=== PATIENT | female | born 1960 | race Caucasian/White ===

== ENCOUNTER 2017-07-30 18:10 | Emergency (ER) | payer OTHER ==
[~2017-07-30] VITALS: Ht 160 cm; Wt 87.8 kg
[~2017-07-30 18:10] MED LIST: ALBUAER2 PO; ALUMSUS2 PO; ASPI-390 PO; B-COCAP2 PO; BLAC1TAB PO; CHOL2000 PO; COEN1CAP46 PO; CRAN1CAP15 PO; CYCL10TA6 PO; FLUT1INH INH; IBUP-1427 PO; LSN25 PO; OMEG10007 PO; TUMERIC PO; [UNRECOGNIZED DRUG - OTHER] PO
[2017-07-30 18:12] VITALS: TEMP 37.1; Ht 160 cm; Wt 87.8 kg
[2017-07-30] MEDS ORDERED: PROCHLORPERAZINE 5 MG/ML 2 ML VIAL IV STA (18:23)
[2017-07-30] MEDS ORDERED: MAGNESIUM SULFATE 1GM / D5W 1 GM BAG IV STA (18:23)
[2017-07-30] MEDS ORDERED: ALBUT/IPRATROP 3MG/0.5MG NEB 3 ML VIAL INH STA (18:23)
[2017-07-30] MEDS ORDERED: DiphenhydrAMINE HCL 50 MG/ML VIAL IV STA (18:23)
[2017-07-30] MEDS ORDERED: KETOROLAC TROMETHAMINE 30 MG/ML VIAL IV STA (18:23)
[2017-07-30] MEDS ORDERED: OPTIRAY 320 IV PRN (18:30)
[2017-07-30] MEDS ORDERED: WLLSR150 PO (18:42)
[2017-07-30] MEDS ORDERED: MAGN400T7 PO (18:42)
[2017-07-30] MEDS ORDERED: VNTHFA/IN INH (18:42)
[2017-07-30] MEDS ORDERED: PANT20TA2 PO (18:42)
[2017-07-30] MEDS ORDERED: HYDR500C3 PO (18:42)
[2017-07-30 18:55] LABS: BASO % 0.4 %; BASO ABS # 0.03 K/uL (0-0.2); EOS % 0.8 %; HEMATOCRIT 43.6 % (37-47); IG% 0.1 %; LYMPH % 32.2 %; LYMPH ABS # 2.73 K/uL (1.2-3.4); MEAN CELL VOLUME 112.7 fL (80-100); MEAN CORPUSCULAR HEMOGLOBIN 39.3 pg (25-34); MEAN CORPUSCULAR HGB CONC 34.9 g/dl (32-36); MEAN PLATELET VOLUME 9.2 fL (7.4-10.4); MONO % 7.2 %; NEUT % 59.3 %; PLATELET COUNT 305 K/uL (130-400); RED BLOOD COUNT 3.87 M/uL (4.2-5.4); WHITE BLOOD COUNT 8.47 K/uL (4.8-10.8)
--- NOTE | 2017-07-30 19:01 | EMERGENCY ROOM VISIT NOTE ---
History Report prepared by Ron: Celia Edge Under the Supervision of: Dr. Marciano Lynn M.D. First contact with patient: 18:17 Chief Complaint: HEADACHE Stated Complaint: HEADACHE History of Present Illness The patient is a 57 year old female who presents to the Emergency Room with complaints of worsening headache starting 2 weeks ago. The patient was standing at work when she felt a pop like she got hit in the back of her head. She then became really dizzy. The dizziness resolved and then she felt foggy for 30 minutes. The fogginess resolved, but she has had a constant headache since. The pain is behind her eyes radiating into the back of her head. The pain is somewhat relieved after ibuprofen, but never completely resolved. She has had migraines in the past, but feels that this is not a migraine because she does not have any nausea or other symptoms usually associated with her migraines. The headache started worsening last night. She went to urgent care today and was sent to the ED for a CT scan. She has had a productive cough. She denies any rhinorrhea. She does smoke. She has a history of asthma and polycythemia vera. Source of History: patient Onset: 2 weeks ago Position: head Quality: ache Timing: worsening Modifying Factors (Relieving): ibuprofen Associated Symptoms: + cough, No nausea Note: Pt denies rhinorrhea. Review of Systems See HPI for pertinent positives & negatives. A total of 10 systems reviewed and were otherwise negative. Past Medical & Surgical Medical Problems: (1) Afib (2) Asthma (3) Depression (4) Diaphragmatic hernia (5) Emphysema/COPD (6) Migraine (7) Polycythemia vera (8) Precordial chest pain (9) Tension headache (10) Tobacco use disorder Surgical Problems: (1) H/O bilateral breast reduction surgery (2) History of partial hysterectomy (3) History of tonsillectomy and adenoidectomy Family History Negative family history for blood clots Negative family history for heart disease FHx: hypercholesterolemia Social History Smoking Status: Current Every Day Smoker Drug Use: none Marital Status: single Housing Status: lives alone Occupation Status: employed Current/Historical Medications Scheduled Black Cohosh (Cimicifuga Racem (Black Cohosh), 1 CAP PO DAILY Bupropion HCl (Bupropion HCl Sr), 150 MG PO DAILY Cholecalciferol (Vitamin D3), 1 CAP PO DAILY Coenzyme Q10 (Ubidecarenone) (Co Q10), 200 MG PO DAILY Cranberry (Vaccinium Macrocarp (Cranberry), 1 TAB PO DAILY Cyclobenzaprine Hcl (Flexeril), 1 TAB PO HS Fish Oil ([place]-3), 1,600 MG PO DAILY Fluticasone Furoate-Vilanterol (Breo Ellipta), 1 PUFF INH DAILY Hydroxyurea (Hydrea Cap), 1,000 MG PO DAILY Ibuprofen (Advil), 800 MG PO PRN Magnesium Oxide (Mg Supplement (Magnesium Oxide), 1 TAB PO DAILY Pantoprazole Sodium (Protonix), 20 MG PO DAILY Turmeric (Curcuma Longa) (Turmeric), 500 MG PO DAILY Vitamin B Cmplx/Vitc/Folic Ac (Nephrocaps), 1 CAP PO DAILY Scheduled PRN Albuterol Hfa (Ventolin Hfa), 2 PUFFS INH Q4 PRN for Wheezing Myrahal-Ydtpmafskpqlf-Rukxruct (Excedrin Migraine), 2 TAB PO Q6H PRN for Migraine Allergies Coded Allergies: Tramadol (Verified Allergy, Severe, HEADACHE, 07/30/17) Diclofenac (Unverified Allergy, Mild, NAUSEA, 12/03/15) Venlafaxine (Unverified Allergy, Mild, ELEVATES BP, 12/03/15) Fentanyl (Verified Allergy, Unknown, CAN USE TOPPICAL DURAGESIC, CAN NOT USE IV !, 12/03/15) Macrolides and Ketolides (Verified Allergy, Unknown, UNKNOWN, 12/03/15) Propoxyphene (Verified Allergy, Unknown, CAN TAKE PINK, WHITE MAKES HER SICK, 12/03/15) Sulfa Antibiotics (Verified Allergy, Unknown, UNKNOWN, 12/03/15) Erythromycin (Unverified Adverse Reaction, Intermediate, SEVERE ABDOMINAL PAIN/BLOODY MUCOUS, 12/03/15) Physical Exam Vital Signs Date Time Temp Pulse Resp B/P (MAP) Pulse Ox O2 Delivery O2 Flow Rate FiO2 07/30/17 20:42 72 20 128/83 95 07/30/17 19:57 86 20 123/73 93 Room Air 07/30/17 19:14 102 07/30/17 18:12 37.1 100 16 171/103 93 Room Air Physical Exam GENERAL: Patient is a healthy-appearing well-nourished female HEAD: Normocephalic atraumatic EYES: Ocular movements intact pupils equal and react to light OROPHARYNX mucous membranes are moist no exudates present no erythema or edema present NECK: Supple no nuchal rigidity. No evidence of meningitis or encephalitis. CHEST: Good equal expansion LUNGS: Clear and equal to auscultation CARDIAC: Normal S1 and S2 ABDOMEN: Soft nontender no guarding BACK: No CVA tenderness EXTREMITIES: No pain upon palpation normal muscle strength in all groups no clubbing cyanosis or edema NEURO: Patient is following commands and answering questions appropriately. Alert and oriented x3 Cranial Nerves 2-12 grossly intact Medical Decision & Procedures ER Provider Diagnostic Interpretation: Radiology results as stated below per my review and radiologist interpretation: ANGIOGRAPHY HEAD COMBO CLINICAL HISTORY: 57 years-old Female presenting with headache. TECHNIQUE: Multidetector CT angiography of the head was performed before and after the administration of intravenous contrast. 3-D volumetric and/or maximum intensity projection (MIP) images were subsequently reconstructed for review. IV contrast: 93 mL of Optiray 320. A dose lowering technique was used consistent with the principles of ALARA (as low as reasonably achievable). COMPARISON: Noncontrast head CT from 2015. CT DOSE (mGy.cm): The estimated cumulative dose is 729.87 mGy.cm. FINDINGS: Parts Room Associate topogram: Calcified granuloma may be present at the right apex. NONCONTRAST CT HEAD: Ventricles and sulci normal in size. Brain parenchyma normal in appearance with preserved phillips-white differentiation. No mass effect or midline shift. No hemorrhage or acute territorial infarct. No extra-axial fluid collection. Paranasal sinuses and mastoid air cells clear. Calvarium intact. CTA HEAD: Anterior circulation including the intracranial portions of the internal carotid arteries, anterior middle cerebral arteries, and anterior communicating artery patent. Posterior circulation demonstrates codominant vertebral arteries. Patent posterior inferior cerebellar, superior cerebellar, and posterior cerebral arteries. The anterior inferior cerebellar arteries are poorly visualized. Hypoplastic or aplastic right posterior communicating artery. Patent left posterior to indicating artery. No evidence of aneurysm, focal vessel occlusion, or significant stenosis. Dural venous sinuses are patent. IMPRESSION: 1. No acute intracranial pathology. 2. No evidence of aneurysm, focal vessel occlusion, or significant stenosis of the intracranial arteries. Electronically signed by: Atif Samuel M.D. 07/30/2017 7:49 PM Dictated Date/Time: 07/30/2017 7:42 PM Laboratory Results 07/30/17 18:37 Red Blood Count 3.87, Mean Corpuscular Volume 112.7, Mean Corpuscular Hemoglobin 39.3, Mean Corpuscular Hemoglobin Concent 34.9, Mean Platelet Volume 9.2, Neutrophils (%) (Auto) 59.3, Lymphocytes (%) (Auto) 32.2, Monocytes (%) ( Auto) 7.2, Eosinophils (%) (Auto) 0.8, Basophils (%) (Auto) 0.4, Neutrophils # ( Auto) 5.02, Lymphocytes # (Auto) 2.73, Monocytes # (Auto) 0.61, Eosinophils # ( Auto) 0.07, Basophils # (Auto) 0.03 07/30/17 18:37 Test 07/30/17 18:37 07/30/17 19:30 White Blood Count 8.47 K/uL (4.8-10.8) Red Blood Count 3.87 M/uL (4.2-5.4) Hemoglobin 15.2 g/dL (12.0-16.0) Hematocrit 43.6 % (37-47) Mean Corpuscular Volume 112.7 fL (80-100) Mean Corpuscular Hemoglobin 39.3 pg (25-34) Mean Corpuscular Hemoglobin Concent 34.9 g/dl (32-36) Platelet Count 305 K/uL (130-400) Mean Platelet Volume 9.2 fL (7.4-10.4) Neutrophils (%) (Auto) 59.3 % Lymphocytes (%) (Auto) 32.2 % Monocytes (%) (Auto) 7.2 % Eosinophils (%) (Auto) 0.8 % Basophils (%) (Auto) 0.4 % Neutrophils # (Auto) 5.02 K/uL (1.4-6.5) Lymphocytes # (Auto) 2.73 K/uL (1.2-3.4) Monocytes # (Auto) 0.61 K/uL (0.11-0.59) Eosinophils # (Auto) 0.07 K/uL (0-0.5) Basophils # (Auto) 0.03 K/uL (0-0.2) RDW Standard Deviation 51.4 fL (36.4-46.3) RDW Coefficient of Variation 12.6 % (11.5-14.5) Immature Granulocyte % (Auto) 0.1 % Immature Granulocyte # (Auto) 0.01 K/uL (0.00-0.02) Macrocytosis PRESENT Anion Gap 6.0 mmol/L (3-11) Est Creatinine Clear Calc Drug Dose 91.5 ml/min Estimated GFR () 107.5 Estimated GFR (Non- 92.7 BUN/Creatinine Ratio 16.3 (10-20) Calcium Level 9.0 mg/dl (8.5-10.1) Total Bilirubin 0.3 mg/dl (0.2-1) Direct Bilirubin < 0.1 mg/dl (0-0.2) Aspartate Amino Transf (AST/SGOT) 16 U/L (15-37) Alanine Aminotransferase (ALT/SGPT) 26 U/L (12-78) Alkaline Phosphatase 77 U/L (45-117) Total Protein 7.7 gm/dl (6.4-8.2) Albumin 4.1 gm/dl (3.4-5.0) Lipase 90 U/L (73-393) Urine Color YELLOW Urine Appearance CLEAR (CLEAR) Urine pH 6.0 (4.5-7.5) Urine Specific Nursery 1.010 (1.000-1.030) Urine Protein NEG (NEG) Urine Glucose (UA) NEG (NEG) Urine Ketones NEG (NEG) Urine Occult Blood NEG (NEG) Urine Nitrite NEG (NEG) Urine Bilirubin NEG (NEG) Urine Urobilinogen NEG (NEG) Urine Leukocyte Esterase NEG (NEG) Labs reviewed by ED physician. Medications Administered Medications (Trade) Dose Ordered Sig/Oj Route Start Time Stop Time Status Last Admin Dose Admin Albuterol/ Ipratropium (Duoneb) 3 ml NOW STAT INH 07/30/17 18:23 07/30/17 18:26 DC 07/30/17 19:03 3 ML Ketorolac Tromethamine (Toradol Inj) 30 mg NOW STAT IV 07/30/17 18:23 07/30/17 18:26 DC 07/30/17 19:02 30 MG Prochlorperazine Edisylate (Compazine Inj) 10 mg NOW STAT IV 07/30/17 18:23 07/30/17 18:26 DC 07/30/17 19:02 10 MG Diphenhydramine HCl (Benadryl Inj) 50 mg NOW STAT IV 07/30/17 18:23 07/30/17 18:26 DC 07/30/17 19:03 50 MG Magnesium Sulfate (Magnesium Sulfate) 1 gm NOW STAT IV 07/30/17 18:23 07/30/17 18:26 DC 07/30/17 19:57 1 GM Dexamethasone Sodium Phosphate 10 mg/Syringe 2.5 ml @ 1 mls/min NOW STAT IV 07/30/17 20:08 07/30/17 20:10 DC 07/30/17 20:27 1 MLS/MIN ED Course 1818: Past medical records reviewed. The patient was evaluated in room B12B. A complete history and physical examination was performed. 182: Magnesium Sulfate 1 gm IV, Benadryl Inj 50 mg IV, Compazine Inj 10 mg IV, Toradol Inj 30 mg IV, Duoneb 3 ml INH. 2005: Upon reexamination the patient is resting comfortably. I discussed results and treatment plan with the patient. She verbalizes agreement and understanding. The patient is ready for discharge. 2008: Dexamethasone Sodium Phosphate 10 mg/Syringe 2.5 ml @ 1 mls/min IV. Medical Decision Differential diagnosis: Etiologies such as migraine headache, meningitis, sinusitis, CO exposure, ICH, SAH, infection, tumor, headache, sinus thrombosis, arterial dissection, as well as others were entertained. This is a 57-year-old female who presents emergency department complaining of headache. I will note that the patient has no evidence of meningitis encephalitis on examination. In addition she is also afebrile and does not have an elevation in her white blood count cell count. Due to the nature the patient's complaint she was sent for a CTA of the head. This did not show any evidence of a ruptured aneurysm. The patient was given Toradol Compazine and Benadryl in the emergency department area and repeat examination revealed improvement patient's symptoms. The patient was also given a DuoNeb breathing treatment. Repeat examination revealed improvement. I do believe that the patient can be safely discharged home for follow-up with her primary care physician. Patient was in agreement with the treatment plan. Medication Reconcilliation Current Medication List: was personally reviewed by me Blood Pressure Screening Patient's blood pressure: Normal blood pressure Blood pressure disposition: Did not require urgent referral Impression Primary Impression: Headache Scribe Attestation The scribe's documentation has been prepared under my direction and personally reviewed by me in its entirety. I confirm that the note above accurately reflects all work, treatment, procedures, and medical decision making performed by me. Departure Information Dispostion Home / Self-Care (ERASED) Referrals Atfi Keene M.D. (PCP) Forms HOME CARE DOCUMENTATION FORM, IMPORTANT VISIT INFORMATION Patient Instructions ED Headache Tension, My [facility] Additional Instructions Follow up with DR Henry's office Increase fluids next 48 hours You have been examined and treated today on an emergency basis only. This is not a substitute for, or an effort to provide, complete comprehensive medical care. It is impossible to recognize and treat all injuries or illnesses in a single emergency department visit. It is therefore important that you follow up closely with Dr Keene. Call as soon as possible for an appointment. Thank you for your time and consideration. I look forward to speaking with you again soon. Please don't hesitate to call us if you have any questions. Problem Qualifiers Primary Impression: Headache Headache type: unspecified Headache chronicity pattern: unspecified pattern Intractability: not intractable Qualified Codes: R51 - Headache
[2017-07-30 19:12] LABS: ALT/SGPT 26 U/L (12-78); BLOOD UREA NITROGEN 12 mg/dl (7-18); BUN/CREATININE RATIO 16.3 (10-20); CARBON DIOXIDE 28 mmol/L (21-32); CHLORIDE 104 mmol/L (98-107); CREATININE 0.73 mg/dl (0.60-1.20); GLUCOSE 92 mg/dl (70-99); POTASSIUM 3.7 mmol/L (3.5-5.1); SODIUM 138 mmol/L (136-145)
[2017-07-30 19:15] LABS: ALKALINE PHOSPHATASE 77 U/L (45-117); AST/SGOT 16 U/L (15-37)
[2017-07-30] MEDS ORDERED: B-CO1CAP17 PO (19:17)
[2017-07-30] MEDS ORDERED: TURM1CAP4 PO (19:17)
[2017-07-30] MEDS ORDERED: CRAN1TAB3 PO (19:17)
[2017-07-30] MEDS ORDERED: COEN1CAP10 PO (19:17)
[2017-07-30] MEDS ORDERED: IBUP-1050 PO (19:17)
[2017-07-30 19:33] LABS: COMPLETE YES
[2017-07-30 19:48] LABS: URINE APPEARANCE CLEAR (CLEAR); URINE BILIRUBIN NEG (NEG); URINE COLOR YELLOW; URINE NITRITE NEG (NEG); UROBILINOGEN NEG (NEG)
--- NOTE | 2017-07-30 19:51 | DIAGNOSTIC IMAGING REPORT ---
ANGIOGRAPHY HEAD COMBO CLINICAL HISTORY: 57 years-old Female presenting with headache. TECHNIQUE: Multidetector CT angiography of the head was performed before and after the administration of intravenous contrast. 3-D volumetric and/or maximum intensity projection (MIP) images were subsequently reconstructed for review. IV contrast: 93 mL of Optiray 320. A dose lowering technique was used consistent with the principles of ALARA (as low as reasonably achievable). COMPARISON: Noncontrast head CT from 2015. CT DOSE (mGy.cm): The estimated cumulative dose is 729.87 mGy.cm. FINDINGS: Hostel Manager topogram: Calcified granuloma may be present at the right apex. NONCONTRAST CT HEAD: Ventricles and sulci normal in size. Brain parenchyma normal in appearance with preserved phillips-white differentiation. No mass effect or midline shift. No hemorrhage or acute territorial infarct. No extra-axial fluid collection. Paranasal sinuses and mastoid air cells clear. Calvarium intact. CTA HEAD: Anterior circulation including the intracranial portions of the internal carotid arteries, anterior middle cerebral arteries, and anterior communicating artery patent. Posterior circulation demonstrates codominant vertebral arteries. Patent posterior inferior cerebellar, superior cerebellar, and posterior cerebral arteries. The anterior inferior cerebellar arteries are poorly visualized. Hypoplastic or aplastic right posterior communicating artery. Patent left posterior to indicating artery. No evidence of aneurysm, focal vessel occlusion, or significant stenosis. Dural venous sinuses are patent. IMPRESSION: 1. No acute intracranial pathology. 2. No evidence of aneurysm, focal vessel occlusion, or significant stenosis of the intracranial arteries. Electronically signed by: Atif Samuel M.D. 07/30/2017 7:49 PM Dictated Date/Time: 07/30/2017 7:42 PM
[2017-07-30 19:54] LABS: MANUAL MICROSCOPIC REQUIRED? NO; REVIEW REQ? NO
[2017-07-30] MEDS ORDERED: DEXAMETHASONE INJ 10 MG in SYRINGE 0 ML IV STA (20:08)
[2017-07-30 20:42] VITALS: BP 128/83; PULSE 72; O2SAT 95
[2017-07-31 15:14] LABS: HYPERSEGMENTED POLYS 1+
== END 2017-07-30 20:44 | disposition home or self-care (01) ==
LOC: C.EDB 18:11
DX: R51 Headache (principal); I48.91 Unspecified atrial fibrillation; J45.909 Unspecified asthma, uncomplicated; F32.9 Major depressive disorder, single episode, unspecified; J44.9 Chronic obstructive pulmonary disease, unspecified; D45 Polycythemia vera; F17.210 Nicotine dependence, cigarettes, uncomplicated; Z82.49 Family history of ischemic heart disease and other diseases of the circulatory system; Z79.899 Other long term (current) drug therapy